=== PATIENT | female | born 1960 | race African-American/Black ===

== ENCOUNTER 2024-05-26 18:24 | Inpatient (IN) | payer BC ==
[~2024-05-26] VITALS: Ht 170.2 cm; Wt 97.5 kg
[2024-05-26 19:27] LABS: BASOPHILS % 0.7 % (0.0-2.0); EOSINOPHILS % 0.9 % (0.0-5.0); HEMATOCRIT. 39.6 % (36.0-48.0); HEMOGLOBIN. 13.5 g/dL (12.0-16.0); LYMPHOCYTES % 49.1 % (20.0-50.0); MEAN CORPUSCULAR HEMOGLOBIN 28.4 pg (28.0-32.0); MEAN CORPUSCULAR VOLUME 83.5 fL (81.0-99.0); MEAN PLATELET VOLUME 7.4 fl (7.4-10.4); MONOCYTES % 7.1 % (2.0-8.0); NEUTROPHILS % 42.2 % (40.0-76.0); PLATELET 311 x1000/uL (130-400); RED BLOOD CELL COUNT 4.75 mill/uL (4.2-5.4); RED CELL DISTRIBUTION WIDTH 13.8 % (11.6-14.6); WHITE BLOOD COUNT 4.9 x1000/uL (4.5-11.0)
[2024-05-26 19:28] LABS: CHLORIDE 112 mEq/L (98-107); POTASSIUM 3.3 mEq/L (3.5-5.1); SODIUM 145 mEq/L (136-145)
[2024-05-26 19:29] LABS: CARBON DIOXIDE 25 mEq/L (21-32)
[2024-05-26 19:30] LABS: CALCIUM 10.2 mg/dL (8.7-10.4)
[2024-05-26 19:35] LABS: CREATININE 0.9 mg/dL (0.6-1.0); GLUCOSE 99 mg/dL (70-105); UREA NITROGEN BLOOD 8 mg/dL (9-23)
[2024-05-26 19:57] LABS: TROPONIN I HIGH SENSITIVITY < 4 ng/L (3.0-34)
[2024-05-27] MEDS ORDERED: ACETAMINOPHEN 325MG TABLET PO PRN ×2 (02:00)
[2024-05-27] MEDS ORDERED: ZOLPIDEM TARTRATE 5MG TABLET PO PRN (02:00)
[2024-05-27] MEDS ORDERED: CLONIDINE 0.1MG TABLET PO PRN (02:00)
[2024-05-27] MEDS: POTASSIUM CHLORIDE 20MEQ TABLET SR PO NR (02:00)
[2024-05-27] MEDS ORDERED: KETOROLAC 15MG/ML VIAL IV PRN (02:00)
[2024-05-27] MEDS ORDERED: ONDANSETRON HCL 4MG/2ML INJ IV PRN (02:00)
[2024-05-27] MEDS: SODIUM CHLORIDE 0.9% 3ML FLUSH IVF SCH (06:39)
[2024-05-27 16:47] LABS: ALANINE AMINOTRANSFERASE 19 IU/L (10-49); ALBUMIN 4.1 g/dL (3.2-4.8); ASPARTATE AMINOTRANSFERASE 22 IU/L (<34); BILIRUBIN DIRECT 0.3 mg/dL (<=3.0); BILIRUBIN TOTAL 0.9 mg/dL (0.1-1.0); PROTEIN TOTAL 7.1 g/dL (6.0-8.3)
[2024-05-27 16:50] LABS: THYROID STIMULATING HORMONE 0.95 uIU/mL (0.55-4.78)
[2024-05-28] MEDS: MAGNESIUM 2 G PREMIX 50 ML IV NR (10:43)
[2024-05-28 20:00] VITALS: BP 143/73; PULSE 74; RESP 18; TEMP 36.50292; O2SAT 100
[2024-05-28 20:24] VITALS: BP 139/75; PULSE 68; TEMP 98.5; O2SAT 97
[2024-05-28 20:25] VITALS: BP 143/73; PULSE 74; RESP 18; TEMP 36.5292
== END 2024-05-28 21:29 | disposition home or self-care (01) | DRG 103 ==
LOC: ER 18:24 → 5WST 23:18 → 6WST 05-28 14:50
PROVIDERS: ADMIT Internal Medicine; ATTEND Internal Medicine
DX: G44.209 Tension-type headache, unspecified, not intractable (principal); H53.2 Diplopia; E66.01 Morbid (severe) obesity due to excess calories; Z68.33 Body mass index [BMI] 33.0-33.9, adult; F41.9 Anxiety disorder, unspecified; F32.A Depression, unspecified
CPT/HCPCS: 36415; 70551; 80048; 80076; 83036; 83735; 84443; 84484; 85025; 85651; 86256; 93005; 99285; J3475